=== PATIENT | female | born 1990 | race Caucasian/White ===

== ENCOUNTER 2018-07-09 08:44 | Inpatient (IN) | END 2018-07-12 13:45 | disposition home or self-care (01) | DRG 807 ==

== ENCOUNTER 2018-12-27 08:06 | Emergency (ER) | payer OTHER ==
[~2018-12-27] VITALS: Ht 160 cm; Wt 77.8 kg
[~2018-12-27 08:06] MED LIST: IBUP-1542 PO; PNV11TAB PO
[2018-12-27 08:08] VITALS: BP 140/75; PULSE 90; RESP 18; Ht 160 cm; Wt 77.8 kg
[2018-12-27] MEDS ORDERED: PSEU-79 PO (08:23)
[2018-12-27] MEDS ORDERED: PROM6.2515 PO (08:23)
[2018-12-27] MEDS ORDERED: NAPR-985 PO (08:23)
[2018-12-27] MEDS ORDERED: BENZ-6 PO (08:23)
--- NOTE | 2018-12-27 15:44 | ERD ---
ER Documentation Chief Complaint Chief Complaint C/O COUGH, SORE THROAT FOR 3 DAYS; NO DROOLING, NO STRIDORS. HPI 28-year-old female presenting with cough and sore throat times 3 days. Patient states that she has had nasal congestion with a dry cough. She has lost her voice. Has not taken medications for symptoms. Denies medical problems. Allergic to amoxicillin. Social history denies. Surgical history denies ROS All systems reviewed and are negative except as per history of present illness. Medications Home Meds Active Scripts Naproxen* (Naprosyn*) 500 Mg Tablet, 500 MG PO BID PRN for PAIN AND/OR INFLAMMATION, #30 TAB Prov:HELGA SLATER PA-C 12/27/18 Promethazine Hcl* (Promethazine Hcl* Syrup) 6.25 Mg/5 Ml Syrup, 6.25 MG PO Q6H PRN for COUGH, #100 ML Prov:HELGA SLATER PA-C 12/27/18 Benzonatate* (Tessalon Perle*) 100 Mg Capsule, 100 MG PO Q8H PRN for COUGH, #30 CAP Prov:HELGA SLATER PA-C 12/27/18 Pseudoephedrine Hcl* (Suphedrin*) 30 Mg Tablet, 30 MG PO Q6 PRN for CONGESTION, #30 TAB Prov:HELGA SLATER PA-C 12/27/18 Ibuprofen* (Ibuprofen*) 600 Mg Tablet, 600 MG PO Q6, #60 TAB 0 Refills Prov:NITHYA BUSTAMANTE MD 07/11/18 Reported Medications [id number] ( 19) 1 Each Tablet, 1 TAB PO DAILY, TAB 07/09/18 Allergies Allergies: Coded Allergies: Penicillins (Verified Allergy, Unknown, 07/09/18) PMhx/Soc Medical and Surgical Hx: pt denies Medical Hx, pt denies Surgical Hx Hx Alcohol Use: No Hx Substance Use: No Hx Tobacco Use: No FmHx Family History: No diabetes, No coronary disease, No other Physical Exam Vitals Vital Signs Date Temp Pulse Resp B/P (MAP) Pulse Ox O2 O2 Flow FiO2 Time Delivery Rate 12/27/18 97.8 90 18 140/75 97 08:08 (96) Physical Exam GENERAL: The patient is well-appearing, well-nourished, in no acute distress HEENT: Atraumatic. Conjunctivae are pink. Pupils equal, round, and reactive to light. There is no scleral icterus. Tympanic membranes clear bilaterally. Oropharynx clear. NECK: C-spine is soft and supple. There is no meningismus. There is no cervical lymphadenopathy. CHEST: Clear to auscultation bilaterally. There are no rales, wheezes or rhonchi. HEART: Regular rate and rhythm. No murmurs, clicks, rubs or gallops. Procedures/MDM DM: 28-year-old female presenting with nasal congestion and cough. Patient has some laryngitis. Patient likely has viral syndrome and may be irritated by nasal congestion into her throat. Patient discharged with supportive medications. I do not feel antibiotics are indicated. Patient is told symptoms change or worsen to return immediately to the ER. All questions answered at discharge Departure Diagnosis: Primary Impression: URI (upper respiratory infection) Condition: Stable Patient Instructions: Preventing Common Respiratory Infections Referrals: [facility] YOU HAVE RECEIVED A MEDICAL SCREENING EXAM AND THE RESULTS INDICATE THAT YOU DO NOT HAVE A CONDITION THAT REQUIRES URGENT TREATMENT IN THE EMERGENCY DEPARTMENT. FURTHER EVALUATION AND TREATMENT OF YOUR CONDITION CAN WAIT UNTIL YOU ARE SEEN I N YOUR DOCTORS OFFICE WITHIN THE NEXT 1-2 DAYS. IT IS YOUR RESPONSIBILITY TO MAKE AN APPOINTMENT FOR FOLOW-UP CARE. IF YOU HAVE A PRIMARY DOCTOR --you should call your primary doctor and schedule an appointment IF YOU DO NOT HAVE A PRIMARY DOCTOR YOU CAN CALL OUR PHYSICIAN REFERRAL HOTLINE AT IF YOU CAN NOT AFFORD TO SEE A PHYSICIAN YOU CAN CHOSE FROM THE FOLLOWING [facility] [address] [facility] [address] [facility] [address] [email or web address] [address] [facility]. [facility] [address] [facility] [address] [facility]. [facility]. [address] Additional Instructions: FOLLOW UP WITH YOUR PRIMARY CARE PHYSICIAN TOMORROW.Return to this facility if you are not improving as expected. HELGA SLATER PA-C Dec 27, 2018 15:44
== END 2018-12-27 08:49 | disposition home or self-care (01) ==
LOC: FTE 08:06
DX: J06.9 Acute upper respiratory infection, unspecified (principal)
CPT/HCPCS: 99283